=== PATIENT | male | born 1990 | race Two or more races ===

== ENCOUNTER 2020-06-22 12:34 | Emergency (ER) | payer SELFPAY ==
[~2020-06-22] VITALS: Ht 188 cm; Wt 74.8 kg
[2020-06-22 13:15] VITALS: BP 124/81
== END 2020-06-22 13:53 | disposition home or self-care (01) ==
LOC: ER 12:34
DX: S90.862A Insect bite (nonvenomous), left foot, initial encounter (principal); F17.210 Nicotine dependence, cigarettes, uncomplicated; W57.XXXA Bitten or stung by nonvenomous insect and other nonvenomous arthropods, initial encounter; Y93.89 Activity, other specified; Y92.89 Other specified places as the place of occurrence of the external cause; Y99.8 Other external cause status

== ENCOUNTER 2020-07-03 17:59 | Emergency (ER) | payer SELFPAY ==
[~2020-07-03] VITALS: Ht 188 cm; Wt 69.4 kg
[2020-07-03 18:22] VITALS: BP 139/82
[2020-07-03 20:10] LABS: Basophils # (auto) 0 10 ^3/uL (0-0.2); Basophils % (auto) 0.5 % (0.0-2.0); Eosinophils # (auto) 0.3 10 ^3/uL (0-0.8); Hematocrit 46.8 % (41.0-53.0); Hemoglobin 15.3 g/dL (13.5-17.5); Lymphocytes # (auto) 1.7 10 ^3/uL (0.4-5.4); Lymphocytes % (auto) 18.6 % (10.0-50.0); Mean Corpuscular Hemoglobin 32.1 pg (28.0-32.0); Mean Corpuscular Hgb Conc. 32.6 g/dL (32.0-36.0); Mean Corpuscular Volume 98.4 fL (80.0-100.0); Monocytes # (auto) 0.7 10 ^3/uL (0-1.3); Monocytes % (auto) 7.5 % (0.0-12.0); Neutrophils # (auto) 6.4 10 ^3/uL (1.6-8.6); Neutrophils % (auto) 70.4 % (37.0-80.0); Nucleated Red Blood Cells % 0.1 %; Platelet Count (auto) 317 10^3/uL (140-450); Red Blood Cells 4.76 10^6/uL (4.5-5.90); Red Cell Distribution Width 13.3 % (11.8-14.3); White Blood Cell 9.1 10^3/uL (4.4-10.8)
[2020-07-03 20:30] LABS: Albumin 3.8 g/dL (3.4-5.0); Calcium 8.9 mg/dL (8.5-10.1); Potassium 3.7 mmol/L (3.5-5.1)
[2020-07-03 20:34] LABS: BUN/Creatinine Ratio 15.8; Bilirubin, Total 0.2 mg/dL (0.2-1.0)
== END 2020-07-03 22:47 | disposition left against medical advice (07) ==
LOC: ER 17:59
DX: R53.1 Weakness (principal); F17.210 Nicotine dependence, cigarettes, uncomplicated
CPT/HCPCS: 36415; 71045; 74176; 80053; 82962; 85025

== ENCOUNTER 2020-09-14 12:19 | Emergency (ER) | payer SELFPAY ==
[~2020-09-14] VITALS: Ht 188 cm; Wt 74.8 kg
[2020-09-14] MEDS ORDERED: HYDROcodone-ACET 5/325MG TAB PO ONE (15:00)
[2020-09-14] MEDS ORDERED: KETOROLAC TROMETH 60MG/2ML VIAL IM ONE (15:00)
[2020-09-14 16:00] VITALS: BP 119/77
== END 2020-09-14 16:24 | disposition home or self-care (01) ==
LOC: ER 12:19
DX: R07.81 Pleurodynia (principal); F17.210 Nicotine dependence, cigarettes, uncomplicated; N18.9 Chronic kidney disease, unspecified
CPT/HCPCS: 71101; 99283; J1885

== ENCOUNTER 2021-02-06 07:27 | Emergency (ER) | payer MEDICAID ==
[~2021-02-06] VITALS: Ht 188 cm; Wt 74.8 kg
[2021-02-06 07:42] VITALS: BP 142/64
== END 2021-02-06 08:16 | disposition home or self-care (01) ==
LOC: ER 07:27
DX: H61.22 Impacted cerumen, left ear (principal); H60.92 Unspecified otitis externa, left ear; N18.9 Chronic kidney disease, unspecified; F17.210 Nicotine dependence, cigarettes, uncomplicated
CPT/HCPCS: 69209